=== PATIENT | female | born 1975 | race Caucasian/White ===

== ENCOUNTER 2017-08-31 17:18 | Observation (INO) | payer MEDICARE ==
[~2017-08-31 17:18] MED LIST: ISOVUE-370 76%-LOCM 1 ML ONE; Iopamidol 370 76% 50 ML VIAL FS ONE
[2017-08-31 18:19] LABS: #Eosinphils 0.3 thou/uL (0.0-0.7); #Lymphocytes 2.3 thou/uL (1.20-3.40); #Monocytes 0.6 thou/uL (0.11-0.59); #Neutrophils 5.8 thou/uL (1.40-6.50); %Basophils 0.4 % (0.0-1.0); %Eosinophils 3.7 % (0.0-10.0); %Lymphocytes 25.3 % (21.0-51.0); %Monocytes 6.1 % (0.0-10.0); %Neutrophils 64.5 % (42.0-75.0); Hemoglobin 15.1 g/dL (12.0-16.0); Mean Corpuscular HGB CONC 32.7 g/dL (32.0-36.0); Mean Corpuscular Hemoglobin 31.1 pg (27.0-31.0); Mean Corpuscular Volume 95.2 fl (81.0-99.0); Mean Platelet Volume 7.6 fL (7.4-10.4); Platelet Count 299 thou/uL (130-400); RBC Distribution Width 13.2 % (11.5-14.5); Red Blood Cell (RBC) Count 4.84 mill/uL (4.20-5.40)
[2017-08-31 18:41] LABS: ALT (SGPT) 15 U/L (8-55); AST (SGOT) 17 U/L (5-34); Alkaline Phosphatase 111 U/L (40-150); Anion Gap 13 mmol/L (10-20); BUN (Urea Nitrogen) 13 mg/dL (7.0-18.7); Bilirubin, Total 0.3 mg/dL (0.2-1.2); Calc. Creatinine Clearance 0 mL/min (70-130); Calcium 9.2 mg/dL (7.8-10.44); Carbon Dioxide 20 mmol/L (22-29); Chloride 113 mmol/L (98-107); Estimated GFR-MDRD 70; Globulin 3.2 g/dL (2.4-3.5); Glucose 83 mg/dL (70-105); Lipase 41 U/L (8-78); Potassium 3.6 mmol/L (3.5-5.1); Protein, Total 7.2 g/dL (6.0-8.3); Sodium 142 mmol/L (136-145)
[2017-08-31 18:44] LABS: Bilirubin Small (Negative); Blood, Urine Negative (Negative); Clarity CLOUDY (Clear); Glucose, Urine (Dipstick) Negative (Negative); Leukocyte Negative (Negative); Nitrite Negative (Negative); Protein, Urine (Dipstick) 30 mg/dL (Neg-Trace)
[2017-08-31 18:46] LABS: Bacteria/HPF 1+ HPF (None Seen); RBC/HPF 0-3 HPF (0-3)
[2017-08-31 18:54] LABS: Pathc Cast-AUWi Flag 2.71 (0-2.49)
[2017-08-31 18:56] LABS: Pregnancy Test - Urine (BHCG) Negative (Negative)
[2017-08-31 18:57] LABS: Pregu Control Background? CLEAR/WHITE (CLR/WHITE); Pregu Control Bar Appear? YES (CONTROL BAR)
[2017-08-31 19:02] LABS: Crystals/HPF 3+ CA OXALATE HPF (Negative); Hyaline Casts/LPF 0-3 HYALINE CAST LPF (0-3 Hyaline); Manual Microscopic Reviewed? No Path Casts Seen; Renal Epithelial None Seen HPF (0-3); Transitional Epithelial NONE SEEN HPF (0-3)
[2017-08-31] MEDS ORDERED: Ondansetron HCl/PF 4 MG/2 ML Vial ONE ×2 (20:28→21:49)
[2017-08-31] MEDS ORDERED: Morphine 4 MG/ML VIAL ONE ×3 (20:30→23:50)
[2017-08-31] MEDS ORDERED: Morphine 2 MG/ML SYRINGE ONE ×3 (20:30→23:50)
[2017-09-01] MEDS ORDERED: Water For Injection,Sterile 20 ML ONE (01:21)
[2017-09-01 02:33] VITALS: BMI 29.2
[2017-09-01] MEDS ORDERED: Ondansetron HCl/PF 4 MG/2 ML Vial IVP PRN (02:53)
[2017-09-01] MEDS ORDERED: HYDROcodone/Acetaminophen 5/325 mg Tablet PO PRN ×2 (02:53)
[2017-09-01] MEDS ORDERED: Acetaminophen 325 MG TAB PO PRN (02:53)
[2017-09-01] MEDS ORDERED: Ondansetron ODT 4 MG TAB SL PRN (02:53)
[2017-09-01] MEDS: Dextrose 5 %-0.45 % NaCl 1,000 ML IV SCH ×2 (03:35→11:34)
[2017-09-01] MEDS: Morphine 5 MG/ML SYRINGE SLOW IVP PRN ×3 (04:33→12:38)
--- NOTE | 2017-09-01 08:20 | CT ---
PRELIMINARY REPORT/[facility]/EMERGENCY AFTER HOURS PROCEDURE: EXAM: CT Abdomen and Pelvis With Intravenous Contrast EXAM DATE/TIME: Exam ordered 08/31/2017 11:53 PM CLINICAL HISTORY: 42 years old, female; Pain and signs and symptoms; Nausea and vomiting; Abdominal pain; Generalized; Prior surgery; Patient HX: Er19; 42 y/o f with presentation of abd pain that started yesterday. Pt re ports loss of appetite and n/v (vomited x2). She states that she is still having normal bm and is pas sing gas. HX of crohn's dz, bowel resection SX TECHNIQUE: Axial computed tomography images of the abdomen and pelvis with intravenous contrast. Coronal reformatted images were created and reviewed. COMPARISON: No relevant prior studies available. FINDINGS: Lower thorax: No acute findings. ABDOMEN: Liver: There are no focal liver lesions identified. Gallbladder and bile ducts: There has been a cholecystectomy. No ductal dilation. Pancreas: The pancreas appears normal. No ductal dilation. Spleen: The spleen is normal. Adrenals: The adrenal glands are normal. Kidneys and ureters: There several hypoattenuating lesions throughout the kidneys which are indetermi rissa on current examination but probably represent simple cysts. No hydronephrosis. Stomach and bowel: There is mild scattered areas of wall thickening of the small and large bowel comp atible with enterocolitis of infectious or inflammatory etiology. The stomach is normal. The appendix is not identified and may be surgically absent in this patient with possible RIGHT hemicolectomy. Appendix: See above. PELVIS: Bladder: The bladder is normal. Reproductive: There is an indeterminate 2.2 cm cyst within the LEFT ovary. The uterus is normal. ABDOMEN and PELVIS: Intraperitoneal space: Normal. No free air. No significant fluid collection. Bones/joints: No acute fracture. No dislocation. Soft tissues: Normal. Vasculature: An inferior vena cava filter lies in appropriate position. No abdominal aortic aneurysm. Lymph nodes: Normal. No enlarged lymph nodes. IMPRESSION: Wall thickening involving the small and large bowel compatible with enterocolitis of infectious or in flammatory etiology. Thank you for allowing us to participate in the care of your patient. Dictated and Authenticated by: Stephen Osullivan MD 09/01/2017 12:57 AM Central Time ([place] & [place]) FINAL REPORT EMERGENCY AFTER HOURS ABDOMEN AND PELVIC CT SCAN WITH IV CONTRAST: Date: 08/31/17 Time: 0027 hours FINDINGS: Postoperative changes with what appears to be right hemicolectomy and ileocolonic anastomosis with so me prominent dilatation of the distal small bowel and transverse colon at the level of the anastomosi s with some focal bowel wall thickening of both the distal small bowel and particularly at the ileoco lonic anastomosis. The amount of colonic dilatation appears to be slightly more prominent than on the prior 06/28/16 study. The amount of small bowel dilatation is little changed and there was some luann l wall thickening seen involving the ileocolonic anastomosis at the time of the prior 06/28/16 study. Stable renal cysts and fatty changes in the liver. IMPRESSION: Probably overall stable ileocolonic anastomotic changes with some bowel wall thickening at the level of the anastomosis, as well as dilatation of the colon and small bowel proximal to the anastomosis. T his dilatation is more marked than on the prior 06/28/16 study, although the bowel wall thickening do es not appear to be significantly changed. Report in agreement with preliminary report given on-call by Gabriela. POS: ABIGAIL
[2017-09-01] MEDS ORDERED: traMADol HCl 50 MG TAB PO PRN (13:54)
[2017-09-01] MEDS ORDERED: predniSONE 50 MG TAB PO SCH (14:15)
[2017-09-01 18:16] VITALS: BP 130/64; TEMP 98.7
--- NOTE | 2017-09-01 22:44 | CON ---
DATE OF CONSULTATION: 09/01/2017 HISTORY OF PRESENT ILLNESS: The patient is a 42-year-old female well known to me from [facility] of Crohn's [place]. [place] recently [place] [facility] this year, complaining of principally abdominal pain. She was started on tramadol and laborato ry was performed. EGD and colonoscopy were performed as well. Colonoscopy showed area of mildly con gestion mucosa throughout the colon and distal ileum showed few localized erosions. No deep ulcerati ons or other changes of Crohn's disease were apparent. Some area of nodularity in the anal area was also noted and all these areas were biopsied. Biopsies showed some chronic active ileitis, which was mild. Random biopsies of colon showed focal hyperplastic changes. Anal canal biopsies showed hyper plastic changes. The patient reports she is doing well. She has these episodes of abdominal pain, w hich are associated sometimes with nausea and vomiting. These episodes of abdominal pain lasted appr oximately 3-7 days. Principally, they are pain, but occasionally she will have some vomiting. On patient's last visit, 08/04/2017, the patient was seen and was recommended we start her on some aza thioprine for prevention of recurrent Crohn's; however, she did not do this as of this stay because o f financial issues with the medication. PAST MEDICAL HISTORY: Includes Crohn's disease with resection, kidney stones. PAST SURGICAL HISTORY: Includes multiple abdominal surgeries for Crohn's disease, appendectomy, chol ecystectomy, . SOCIAL HISTORY: The patient smokes, drinks occasionally. FAMILY HISTORY: Negative for GI or liver disease. REVIEW OF SYSTEMS: Ten systems were reviewed and were negative except for above. PHYSICAL EXAMINATION: GENERAL: Shows a well-developed, well-nourished white female in some discomfort. VITAL SIGNS: Temperature 98.7, pulse of 90, respiratory rate 18, blood pressure 130/64. HEENT: Unremarkable. NECK: Supple. CHEST: Clear. CARDIOVASCULAR: Regular rate and rhythm. ABDOMEN: Deformed secondary to previous surgeries, but no skin lesions or ulcerations were noted, sh owed diffusely tender and somewhat tympanitic. Bowel sounds are present. RECTAL: Deferred. EXTREMITIES: Normal. NEUROLOGIC: Nonfocal. LABORATORY DATA: Shows a normal urinalysis with 4-6 WBCs, 11-20 epithelial cells. Chemistries are e ssentially normal except for CO2 of 20. CBC is essentially normal. ASSESSMENT: Generalized abdominal pain -- this could be a multitude of factors including adhesions o r chronic pain syndrome. I do not think this represents a Crohn's exacerbation as she was recently u nderwent a lower endoscopy, CRP and sed rate were all within normal limits. RECOMMENDATIONS: 1. Trial of Levsin for abdominal pain. 2. Okay to be discharged from GI standpoint. 3. The patient is requesting some tramadol. I am been concerned in the past about opiate use in thi s patient, I would let her have some now, restricted number.
[2017-09-02] MEDS ORDERED: predniSONE 50 MG TAB PO SCH (08:00)
--- NOTE | 2017-09-02 10:27 | SS ---
DATE OF ADMISSION: 09/01/2017 DATE OF DISCHARGE: 09/01/2017 DISCHARGE DIAGNOSES: 1. Crohn's flare. 2. Medical noncompliance. HISTORY OF PRESENT ILLNESS: This is a 42-year-old female with a known history of Crohn's disease who presents with a chief complaint of abdominal pain. She was recently seen on an outpatient basis by her riveter helper was prescribed a course of medication, but she was unable to fill due to finan cial reasons. Subsequently, her riveter helper outpatient office was able to pick her coupons an d some samples for her, but she has been unable to go and pick these up. Patient presents with nonsp ecific generalized abdominal pain. Denies any nausea, vomiting or diarrhea. She is currently seen a fter having received IV morphine in the emergency department. The patient tells me that she wishes t o go home and wishes to advance her diet. During this hospitalization, the patient was transitioned off of IV steroids and transitioned off of IV morphine. She was seen by Gastroenterology during this hospitalization. Her diet has been advanc ed and she is tolerating a regular soft diet without any adverse issues. She will be discharged home with a limited number of tramadol. It is noted that she does have a history of difficulty with opia te-based medications and undo dependence with them. The patient was also discharged with a course of Levsin and instructed for close outpatient followup. PAST MEDICAL HISTORY: Please see above. 1. Crohn's disease, status post multiple abdominal surgeries including resection. 2. Status post appendectomy. 3. Status post cholecystectomy. HOME MEDICATIONS: Currently none due to both financial and social issues as described above. FAMILY HISTORY: No other family members with known Crohn's disease, ulcerative colitis, or other GI disease in the family that the patient is aware of. SOCIAL HISTORY: The patient denies any illicit drug use. Endorses occasional alcohol use and active tobacco use. The patient endorsed that she wishes to be full code. The patient states that she has adult children at home and her mother lives two doors down from her. REVIEW OF SYSTEMS: Constitutional: No recent weight changes, fevers or chills. HEENT: No new head aches, dizziness or lightheadedness. Respiratory: Denies any new cough, congestion, shortness of br eath, dyspnea on exertion. Cardiovascular: Denies any chest pain, chest pressure or side arm numbne ss or tingling, episodes of diaphoresis. GI: As described above. Genitourinary: Denies any dysuri a, change in urine quality or quantity. Musculoskeletal: Denies any new arthralgias or myalgias. R emainder of review of systems otherwise negative. PHYSICAL EXAMINATION: GENERAL: The patient is awake, alert, appropriate, oriented x3, no acute distress, seated in the hos pital bed and conversant. HEENT: Normocephalic, atraumatic. Equal, ocular motions are intact, moist mucous membranes. CARDIOVASCULAR: S1, S2. No murmurs, rubs or gallops. Pulses 2+ bilateral upper extremities, no pit ting pedal edema. RESPIRATORY: Grossly clear to auscultation. No wheezes, rales or rhonchi. Reasonable air movement. ABDOMEN: Positive bowel sounds, soft, nontender to palpation. MUSCULOSKELETAL: Moving all 4 extremities and able to self reposition in bed without difficulty or a ssistance. LABORATORIES AND IMAGING: WBC 9.0, hemoglobin 15.1, hematocrit 46.1, platelets 299. Sodium 142, pot assium 3.6, chloride 113, bicarbonate 20, BUN 13, creatinine 0.88, glucose 83. Lactic acid 1.2, calc ium 9.2, total bilirubin 0.3, AST 17, ALT 15, alkaline phosphatase 111, total protein 7.2, albumin 4. 0. UA is significant for 30 of protein and small bilirubin with 4-6 wbc's, 11-20 squamous epithelial cells, 1+ urine bacteria. On 08/31/2017, CT of the abdomen and pelvis, impression, "wall thickening involving the small and lar ge bowel, compatible with enterocolitis of infectious or inflammatory etiology." DISCHARGE INSTRUCTIONS: The patient has been asked to follow up closely with her PCP and her gastroe nterologist. She has been given instructions regarding her course of tramadol and Levsin. The francesca nt is able to complete each back in regards to followup needs. Discharge medication reconciliation n otable for those two medications only. Thank you for asking me to care for the patient. Questions or concerns, please contact me to [facility].
== END 2017-09-01 20:47 | disposition home or self-care (01) ==
LOC: ERS 17:18 → 2SW 09-01 01:08
PROVIDERS: ADMIT Internal Medicine; ATTEND Internal Medicine
DX: K50.90 Crohn's disease, unspecified, without complications (principal); F17.200 Nicotine dependence, unspecified, uncomplicated; K52.9 Noninfective gastroenteritis and colitis, unspecified; Z91.14 Patient's other noncompliance with medication regimen; Z90.49 Acquired absence of other specified parts of digestive tract; Z98.891 History of uterine scar from previous surgery; Z98.890 Other specified postprocedural states; Z87.442 Personal history of urinary calculi
CPT/HCPCS: 74177; 80053; 81025; 83605; 83690; 85025; 96361 ×2; 96374; 96375; 96376 ×2; 99285; 99406; G0378; 36415; 81003; 81015; J2270; J2405; J2920

== ENCOUNTER 2018-11-23 15:54 | Emergency (ER) | payer MEDICARE ==
[2018-11-23 16:26] LABS: Bilirubin Negative (Negative); Blood, Urine Moderate (Negative); Clarity CLOUDY (Clear); Glucose, Urine (Dipstick) Negative (Negative); Leukocyte Small (Negative); Nitrite Negative (Negative); Protein, Urine (Dipstick) Negative (Neg-Trace); Specific Gravity, Urine 1.009 (1.002-1.036); Urobilinogen 0.2 mg/dL (0.2-1.0)
[2018-11-23 16:32] LABS: Bacteria/HPF 4+ HPF (None Seen); Hyaline Casts/LPF 4-6 HYALINE CAST LPF (0-3 Hyaline); Pathc Cast-AUWi Flag 0.27 (0-2.49); Squamous Epithelial 0-3 HPF (0-3); WBC/HPF 21-50 HPF (0-3)
[2018-11-23 16:46] LABS: #Basophils 0.1 thou/uL (0.0-0.2); #Eosinphils 0.4 thou/uL (0.0-0.7); #Lymphocytes 1.5 thou/uL (1.20-3.40); #Monocytes 0.6 thou/uL (0.11-0.59); #Neutrophils 8.5 thou/uL (1.40-6.50); %Basophils 0.6 % (0.0-1.0); %Eosinophils 3.2 % (0.0-10.0); %Monocytes 5.6 % (0.0-10.0); %Neutrophils 76.7 % (42.0-75.0); Hemoglobin 12.1 g/dL (12.0-16.0); Mean Corpuscular HGB CONC 33.3 g/dL (32.0-36.0); Mean Corpuscular Hemoglobin 32.6 pg (27.0-31.0); Mean Corpuscular Volume 97.8 fL (78.0-98.0); Mean Platelet Volume 8.6 fL (7.4-10.4); Platelet Count 212 thou/uL (130-400); RBC Distribution Width 12.5 % (11.5-14.5); Red Blood Cell (RBC) Count 3.71 mill/uL (4.20-5.40)
[2018-11-23] MEDS ORDERED: Morphine 4 MG/ML VIAL ONE (16:47)
[2018-11-23] MEDS ORDERED: Ondansetron PF 4 MG/2 ML Vial ONE (16:47)
[2018-11-23] MEDS ORDERED: cefTRIAXone\\ROCEPHIN 2 GM VIAL ONE (16:59)
[2018-11-23 17:01] LABS: ALT (SGPT) 12 U/L (8-55); AST (SGOT) 13 U/L (5-34); Albumin 3.3 g/dL (3.5-5.0); Alkaline Phosphatase 73 U/L (40-150); Anion Gap 11 mmol/L (10-20); BUN (Urea Nitrogen) 13 mg/dL (7.0-18.7); Bilirubin, Total 0.3 mg/dL (0.2-1.2); Calc. Creatinine Clearance 0 mL/min (70-130); Carbon Dioxide 20 mmol/L (22-29); Chloride 110 mmol/L (98-107); Estimated GFR-MDRD 84; Globulin 2.1 g/dL (2.4-3.5); Glucose 103 mg/dL (70-105); Lipase 18 U/L (8-78); Potassium 3.3 mmol/L (3.5-5.1); Protein, Total 5.4 g/dL (6.0-8.3); Sodium 138 mmol/L (136-145)
[2018-11-23 17:06] LABS: Pregnancy Test - Urine (BHCG) Negative (Negative); Pregu Control Background? CLEAR/WHITE (CLR/WHITE); Pregu Control Bar Appear? YES (CONTROL BAR); Specific Gravity 1.009 (1.002-1.036)
--- NOTE | 2018-11-23 17:40 | CT ---
Contrast-enhanced CT images of abdomen and pelvis. HISTORY: Pain. The lung bases are unremarkable except for some minimal areas of right lower lobe scarring unchanged since the previous exam. No evidence of free intraperitoneal air seen. The liver and spleen are unremarkable. The gallbladder is been surgically removed. Pancreas unremarkable. Adrenal glands unremarkable. Left cortical cyst seen in the left kidney. The right kidney demonstrates mild hydronephrosis. This was not present on the patient's previous [facility] CT. The patient has a duplicated right-sided collecting system. Extensive anterior abdominal wall surgical changes seen. There is been extensive surgical resection of much of the small bowel. The patient is also had a righ t-sided hemicolectomy. There is thickening of the mucosa of the rectum possibly representing inflammatory or neoplastic involvement. Surgical changes compatible with patient's history of Crohn's disease. Inferior vena caval filter is in place. IMPRESSION: 1: Interval development of some hydronephrosis the right kidney. 2: Extensive postsurgical changes with small bowel resection and right hemicolectomy.
[2018-11-23] MEDS ORDERED: HYDROcodone/Acetaminophen 5/325 mg Tablet ONE (17:50)
--- NOTE | 2018-11-25 15:14 | EKG ---
Test Reason : Blood Pressure : / mmHG Vent. Rate : 095 BPM Atrial Rate : 095 BPM P-R Int : 174 ms QRS Dur : 084 ms QT Int : 374 ms P-R-T Axes : 043 045 037 degrees QTc Int : 469 ms Normal sinus rhythm Normal ECG Confirmed by CESAR ANGELES ([id number]), acquisition editor SHANDRA COBOS ([id number]) on 11/25/2018 3:13:44 PM Referred By: Confirmed By:CESAR ANGELES
== END 2018-11-23 18:36 | disposition home or self-care (01) ==
LOC: ERS 15:54
DX: N39.0 Urinary tract infection, site not specified (principal); F17.210 Nicotine dependence, cigarettes, uncomplicated
CPT/HCPCS: 36415; 74177; 80053; 81003; 81015; 81025; 83690; 85025; 87077; 87086; 87186; 93005; 94760; 96361; 96365; 96375; J0696; J2270; J2405

== ENCOUNTER 2024-04-15 06:53 | Emergency (ER) | payer MEDICARE, MEDICAID ==
[2024-04-15] MEDS ORDERED: Dexamethasone 10 MG/ML VIAL ONE (07:51)
[2024-04-15] MEDS ORDERED: Ketorolac Tromethamine 30 MG (1 mL) VIAL ONE (07:51)
[2024-04-15] MEDS ORDERED: Orphenadrine Citrate 60 MG/2 ML VIAL ONE (07:52)
[2024-04-15] MEDS ORDERED: HYDROcodone/Acetaminophen 10/325 mg Tablet ONE (08:27)
[2024-04-15 10:04] LABS: Bilirubin Negative (Negative); Blood, Urine 1+ (Negative); CAUTI Indications for Culture Dysuria,urgency,freq; Calcium Oxalate Crystals 4+ HPF (None Seen); Clarity Turbid (Clear); Glucose, Urine (Dipstick) Normal (Negative); Ketone, Urine Trace mg/dL (Negative); Leukocyte 250 Leu/uL (Negative); Mucous/LPF Rare LPF (<2+); Nitrite 2+ (Negative); Protein, Urine (Dipstick) 30 mg/dL (Neg-Trace); Specific Gravity, Urine 1.023 (1.002-1.036); Urobilinogen Normal mg/dL (Less than 2); WBC/HPF 21-50 HPF (0-3)
[2024-04-15 10:14] LABS: Bacteria/HPF 1+ HPF (None Seen)
[2024-04-15 10:20] LABS: Urine Culture Reflex Yes Yes
[2024-04-15 11:56] LABS: #Basophils Less than 0.03 10x3/uL (0.0-0.2); #Eosinophils Less than 0.03 10x3/uL (0.0-0.7); %Basophils 0.2 % (0.0-1.0); %Lymphocytes 6.6 % (21.0-51.0); %Monocytes 0.6 % (0.0-10.0); %Neutrophils 92.4 % (42.0-75.0); Hematocrit 43.7 % (36.0-47.0); Hemoglobin 14.6 g/dL (12.0-16.0); Mean Corpuscular HGB CONC 33.4 g/dL (32.0-36.0); Mean Corpuscular Hemoglobin 32.4 pg (27.0-31.0); Mean Corpuscular Volume 96.9 fL (78.0-98.0); Mean Platelet Volume 10.2 fL (7.4-10.4); Platelet Count 295 10x3/uL (130-400); RBC Distribution Width 13.6 % (11.5-14.5); Red Blood Cell (RBC) Count 4.51 mill/uL (4.20-5.40)
[2024-04-15] MEDS ORDERED: Cyclobenzaprine 10 MG TAB ONE (12:06)
[2024-04-15] MEDS ORDERED: Cyclobenzaprine 10 MG TAB PO SCH (12:15)
[2024-04-15 12:18] LABS: ALT (SGPT) 16 U/L (8-55); AST (SGOT) 27 U/L (5-34); Alkaline Phosphatase 109 U/L (40-110); Anion Gap 13 mmol/L (10-20); BUN (Urea Nitrogen) 11 mg/dL (7.0-18.7); Bilirubin, Total 0.6 mg/dL (0.2-1.2); Calc. Creatinine Clearance 0 mL/min (70-130); Calcium 9.3 mg/dL (7.8-10.44); Carbon Dioxide 20 mmol/L (22-29); Chloride 110 mmol/L (98-107); Estimated GFR 79; Globulin 3.5 g/dL (2.4-3.5); Glucose 108 mg/dL (70-105); Lipase 12 U/L (8-78); Protein, Total 7.5 g/dL (6.0-8.3); Sodium 139 mmol/L (136-145)
[2024-04-15] MEDS ORDERED: HYDROcodone/Acetaminophen 5/325 mg Tablet ONE (13:28)
== END 2024-04-15 13:25 | disposition home or self-care (01) ==
LOC: ERS 06:53
DX: M25.551 Pain in right hip (principal); N12 Tubulo-interstitial nephritis, not specified as acute or chronic; F17.210 Nicotine dependence, cigarettes, uncomplicated; Z75.3 Unavailability and inaccessibility of health-care facilities
CPT/HCPCS: 73502; 80053; 81001; 83690; 85025; 87077; 87086; J1100; J1885; J2360; 96372; 99284